=== PATIENT | female | born 1995 | race Caucasian/White ===

== ENCOUNTER 2016-06-04 15:58 | Emergency (ER) | payer MEDICAID ==
[2016-06-04 16:25] VITALS: TEMP 98.5; BMI 24.9
[2016-06-04 16:36] LABS: AMORPHOUS OCC; LEUKOCYTES/URINE NEG (NEGATIVE); NITRITE/URINE NEG (NEGATIVE); URINE OCCULT BLOOD NEG (NEG/TRACE)
--- NOTE | 2016-06-04 18:23 | EDPRACDOC ---
- General Information Chief Complaint: Abdominal Pain Stated Complaint: ABDOMINAL PAIN Time Seen by Provider: 06/04/16 18:18 Mode Of Arrival: Car Home Medications: Home Medications Vits W-Ca,Fe,FA(<1Mg) [] 1 each PO DAILY #60 tablet 06/04/16 Allergies/Adverse Reactions: Allergies Allergy/AdvReac Type Severity Reaction Status Date / Time No Known Allergies Allergy Verified 06/04/16 16:25 - History of Present Illness Onset: 2 WEEKS AGO HPI: PATIENT STATES SHE HAS HAD MILD BACK PAIN AND SUPRAPUBIC PAIN FOR WEEKS. NO N/V /D. NO FEVER. PATIENT STATES LAST WAS IN JULY OF LAST YEAR. A0. PATIENT DOES NOT REALIZE SHE IS . NO VAGINAL BLEEDING Pain Location: Reports: Suprapubic Pain Context: Reports: Spontaneous Pain Severity: Mild Pain Quality: Reports: Aching Pain Radiation: Reports: Back Last Menstrual Period: JULY 2015 : 2 Para: 1 Abortus: 0 Control Method: Reports: None Blood Type: A+ Adult Abdominal History: Denies: Abdominal Surgery Female Abdominal History: Denies: Abdominal Surgery Female Associated Signs & Symptoms: Denies: Nausea, Vaginal Bleeding, Vomiting Oral Intake: Normal Urinary Output: Normal ED Past Medical History - History Reviewed Yes Nurses notes reviewed and agree except as marked Travel Outside of [place] in the Last 3 Months?: No - Patient Medical History Psychological History: Denies: Substance Use Disorder - Social Medical History Smoking Status: Never smoker Social History: Denies: Amphetamine Use, Barbiturate Use, Benzodiazipine Use, Cocaine Use, Heroin Use, Marijuana Use, Methadone Use, MDMA (Ecstasy) Use, Substance Use Disorder ETOH: None Substance Abuse: None Lives With: Family Lives In: Home EDM Review of Systems - Review of Systems ROS Negative Except as Marked: Yes All systems reviewed and were negative except as marked Constitutional: No Symptoms Reported. negative: Fever, Chills, Weakness, Fatigue, Loss of Appetite Eyes: No Symptoms Reported. negative: Redness, Blurred Vision, Double Vision, Discharge, Pain, Light Sensitive, Photophobia Ears: No Symptoms Reported. negative: Pain, Hearing Loss, Drainage, Ear Pulling Throat: No Symptoms Reported. negative: Pain, Swelling Nose: No Symptoms Reported. negative: Congestion, Bleeding, Discharge, Injection, Swelling, Deformity, Ecchymosis, Tender, Abrasion, Laceration Mouth: No Symptoms Reported. negative: Pain, Drooling Respiratory: No Symptoms Reported. negative: Cough, Brassy Cough, Barky Cough, Shortness of Breath, Wheezing, Hemoptysis Cardiovascular: No Symptoms Reported. negative: Chest Pain, Palpitations, Syncope, Edema, Orthopnea, PND, Skin Mottling, Cyanosis Gastrointestinal: Pain. negative: Constipation, Diarrhea, Formula Intolerance, Melena, Nausea, Vomiting Genitourinary: No Symptoms Reported. negative: Dysuria, Hematuria, Frequency, Discharge, Bleeding, Testicular Pain, Neurological: No Symptoms Reported. negative: Headache, Dizziness, Seizure, Numbness, Weakness, Speech Difficulty, Gait Difficulty Musculoskeletal: No Symptoms Reported. negative: Neck, Chestwall, Ribs, Back, Shoulder, Arm, Elbow, Forearm, Wrist, Hand, Pelvis, Hip, Femur, Knee, Leg, Ankle , Foot Integumentary: No Symptoms Reported. negative: Itching, Rash, Bruising, Wound Allergic/Immunologic: No Symptoms Reported. negative: Hives, Itching Hematologic: No Symptoms Reported. negative: Lymphadenopathy, Easy Bruising, Easy Bleeding Endocrine: No Symptoms Reported. negative: Weight Gain, Weight Loss Psychiatric: No Symptoms Reported. negative: Anxiety, Depression, Hallucinations, Insomnia, Suicidal - Physical Exam Constitutional: Alert (Awake), No apparent distress Oriented to: Time, Person, Place Last recorded Vital Signs: Last Vital Signs Temp 98.5 F 06/04/16 16:23 Pulse 72 06/04/16 19:18 Resp 18 06/04/16 19:18 BP 116/81 06/04/16 19:18 Pulse Ox 100 06/04/16 19:18 Oxygen Pulse Oxygen Saturation 100 O2 Device Room Air Oxygen Flow Rate Fraction of Inspired Oxygen ( FIO2) - HEENT Head: Normal ( normocephalic) Eye Exam: Normal (PERRL, EOMI, Sclera white) Oropharynx: Normal (Pharynx:Moist without exudate,Gums-no swelling) Tympanic Membrane: Normal ENT EAC: Normal TMJ: Normal Nose: No Symptoms Reported (septum midline) Neck: Normal (FROM, trachea at midline) - Respiratory/Cardiovascular Respiratory: Normal - CTA (BBS clear to auscultation without adventitious sounds ) Cardiovascular: Normal (RRR without murmur, gallop or rub) - GI Auscultation: Normal (NABS) Palpation: Normal (Soft,No rebound or guarding, non distended) Tenderness: Non tender Garzon's Sign: Negative - Musculoskeletal Back: Normal (Non-Tender) Extremities: Normal (Normal tone, Pulses 2+ No cyanosis or edema, FROM) - Integumentary Skin: Normal, Warm, Dry Lymphatics: Normal (no adenopathy) - Neurologic Memory Impaired: Normal Motor Function: Normal (Normal tone, Pulses 2+ No cyanosis or edema, FROM) Cranial Nerve: Normal (CN II-X11 intact sensation, strength 5/5) Cerebellar: Normal Mood Description: Normal Perception: Normal - Results 06/04/16 18:30 06/04/16 18:30 WBC 13.6 xk/uL (3.8-10.8) H 06/04/16 18:30 RBC 4.38 xM/uL (4.20-5.40) 06/04/16 18:30 Hgb 12.9 g/dL (12.0-16.0) 06/04/16 18:30 Hct 38.5 % (36-47) 06/04/16 18:30 MCV 88 fL (81-99) 06/04/16 18:30 MCH 29.4 pg (27-32) 06/04/16 18:30 MCHC 33.4 g/dl (33-36) 06/04/16 18:30 RDW 15.2 % (11.5-14.5) H 06/04/16 18:30 Plt Count 324 xk/uL (130-400) 06/04/16 18:30 MPV 8.0 fL (7.4-10.4) 06/04/16 18:30 Neut % (Auto) 59.5 % (45-76) 06/04/16 18:30 Lymph % (Auto) 32.2 % (17-44) 06/04/16 18:30 [place] % (Auto) 6.3 % (3-10) 06/04/16 18:30 Eos % (Auto) 1.1 % (0-5) 06/04/16 18:30 Baso % (Auto) 0.9 % (0-2) 06/04/16 18:30 Absolute Neuts (auto) 8.02 xk/uL (1.7-8.2) 06/04/16 18:30 Absolute Lymphs (auto) 4.35 xk/uL (0.65-4.75) 06/04/16 18:30 Sodium 137 mEq/L (137-146) 06/04/16 18:30 Potassium 4.0 mEq/L (3.5-5.1) 06/04/16 18:30 Chloride 102 mEq/L (98-107) 06/04/16 18:30 Carbon Dioxide 23 mMOL/L (22-33) 06/04/16 18:30 Anion Gap 16 mEq/L (8-16) 06/04/16 18:30 BUN 11 MG/DL (7-17) 06/04/16 18:30 Creatinine 0.60 MG/DL (0.52-1.04) 06/04/16 18:30 Estimated GFR (MDRD) > 60 mL/min (>=60) 06/04/16 18:30 Glucose 83 MG/DL (70-99) 06/04/16 18:30 Calculated Osmolality 262 MOs/Kg (270-290) L 06/04/16 18:30 Calcium 9.5 MG/DL (8.4-10.2) 06/04/16 18:30 Total Bilirubin 0.5 MG/DL (0.2-1.3) 06/04/16 18:30 AST 29 IU/L (14-36) 06/04/16 18:30 ALT 29 IU/L (9-52) 06/04/16 18:30 Alkaline Phosphatase 44 IU/L (38-126) 06/04/16 18:30 Total Protein 7.8 G/DL (6.3-8.2) 06/04/16 18:30 Albumin 4.8 G/DL (3.5-5.0) 06/04/16 18:30 Beta HCG, Quant > 53605.0 mIU/mL (<5) 06/04/16 18:30 Urine Color Yellow 06/04/16 16:07 Urine Clarity Clear 06/04/16 16:07 Urine pH 6.0 (5.0-8.0) 06/04/16 16:07 Ur Specific [place] 1.015 (1.003-1.035) 06/04/16 16:07 Urine Protein Neg (NEG/TRACE) 06/04/16 16:07 Urine Glucose (UA) Neg (NEGATIVE) 06/04/16 16:07 Urine Ketones Neg (NEGATIVE) 06/04/16 16:07 Urine Occult Blood Neg (NEG/TRACE) 06/04/16 16:07 Urine Nitrite Neg (NEGATIVE) 06/04/16 16:07 Urine Bilirubin Neg (NEGATIVE) 06/04/16 16:07 Urine Urobilinogen <2.0 MG/DL (0-1) 06/04/16 16:07 Ur Leukocyte Esterase Neg (NEGATIVE) 06/04/16 16:07 Urine WBC 2-5 (0-5) 06/04/16 16:07 Ur Epithelial Cells 3+ 06/04/16 16:07 Amorphous Sediment Occ 06/04/16 16:07 Urine Bacteria Few (NEG/FEW) 06/04/16 16:07 Urine Mucus Sm amt (NEG/OCC) 06/04/16 16:07 Urine Test Pos (NEGATIVE) H 06/04/16 16:07 Lab Results 06/04/16 06/04/16 06/04/16 18:30 18:30 16:07 WBC 13.6 H RBC 4.38 Hgb 12.9 Hct 38.5 MCV 88 MCH 29.4 MCHC 33.4 RDW 15.2 H Plt Count 324 MPV 8.0 Neut % (Auto) 59.5 Lymph % (Auto) 32.2 [place] % (Auto) 6.3 Eos % (Auto) 1.1 Baso % (Auto) 0.9 Absolute Neuts (auto) 8.02 Absolute Lymphs (auto) 4.35 Sodium 137 Potassium 4.0 Chloride 102 Carbon Dioxide 23 Anion Gap 16 BUN 11 Creatinine 0.60 Estimated GFR (MDRD) > 60 Glucose 83 Calculated Osmolality 262 L Calcium 9.5 Total Bilirubin 0.5 AST 29 ALT 29 Alkaline Phosphatase 44 Total Protein 7.8 Albumin 4.8 Beta HCG, Quant > 05766.0 Urine Color Yellow Urine Clarity Clear Urine pH 6.0 Ur Specific [place] 1.015 Urine Protein Neg Urine Glucose (UA) Neg Urine Ketones Neg Urine Occult Blood Neg Urine Nitrite Neg Urine Bilirubin Neg Urine Urobilinogen <2.0 Ur Leukocyte Esterase Neg Urine WBC 2-5 Ur Epithelial Cells 3+ Amorphous Sediment Occ Urine Bacteria Few Urine Mucus Sm amt Urine Test 06/04/16 16:07 WBC RBC Hgb Hct MCV MCH MCHC RDW Plt Count MPV Neut % (Auto) Lymph % (Auto) [place] % (Auto) Eos % (Auto) Baso % (Auto) Absolute Neuts (auto) Absolute Lymphs (auto) Sodium Potassium Chloride Carbon Dioxide Anion Gap BUN Creatinine Estimated GFR (MDRD) Glucose Calculated Osmolality Calcium Total Bilirubin AST ALT Alkaline Phosphatase Total Protein Albumin Beta HCG, Quant Urine Color Urine Clarity Urine pH Ur Specific [place] Urine Protein Urine Glucose (UA) Urine Ketones Urine Occult Blood Urine Nitrite Urine Bilirubin Urine Urobilinogen Ur Leukocyte Esterase Urine WBC Ur Epithelial Cells Amorphous Sediment Urine Bacteria Urine Mucus Urine Test Pos H - Additional Information BEDSIDE U/S SHOWS IUP WITH HEART TONES OF 164 Decision Time to Discharge: 19:44 - Departure Yes I personally saw and evaluated the patient. Disposition: Home Condition: Good Final Diagnosis: Early stage of , Abdominal pain Instructions: Acute Abdominal Pain (ED), First Trimester (ED) Education/Counseling Given To: Patient Education/Counseling Given Regarding: Diagnosis, Treatment, Prognosis, Follow Up Referrals: None,No Provider [Primary Care Provider] - One Week Alfredo Langley MD [Staff Physician] - One Week Prescriptions: Vits W-Ca,Fe,FA(<1Mg) [] 1 each PO DAILY #60 tablet
[2016-06-04 18:50] LABS: AUTOMATED BASOPHIL 0.9 % (0-2); AUTOMATED EOSINOPHIL 1.1 % (0-5); AUTOMATED LYMPH 32.2 % (17-44); AUTOMATED MONOCYTE 6.3 % (3-10); AUTOMATED NEUTROPHIL 59.5 % (45-76)
[2016-06-04 18:56] LABS: BLOOD UREA NITROGEN 11 MG/DL (7-17); CALCIUM 9.5 MG/DL (8.4-10.2); CALCULATED OSMOLALITY 262 MOs/Kg (270-290); CHLORIDE 102 mEq/L (98-107); GLUCOSE 83 MG/DL (70-99); SODIUM LEVEL 137 mEq/L (137-146); TOTAL PROTEIN 7.8 G/DL (6.3-8.2)
[2016-06-04 20:13] VITALS: BP 115/71; PULSE 69
== END 2016-06-04 20:12 | disposition home or self-care (01) ==
LOC: ED 15:58
DX: R10.9 Unspecified abdominal pain (principal)
CPT/HCPCS: 36415; 80053; 81001; 81025; 84702; 85025; 99283